=== PATIENT | male | born 1995 | race Caucasian/White ===

== ENCOUNTER 2016-08-10 10:07 | Inpatient (IN) | payer BC ==
[~2016-08-10] VITALS: Ht 170.2 cm; Wt 85.0 kg
[2016-08-10] VITALS (7 sets, daily range): BP systolic 101–119; BP diastolic 45–82; PULSE 87–130; TEMP 36.9–37.3; O2SAT 93–99; Ht 170.2 cm; Wt 85.0 kg
[2016-08-10] MEDS ORDERED: LORAZEPAM 2 MG/ML 1 ML VIAL IV STA (10:36)
--- NOTE | 2016-08-10 10:39 | EMERGENCY ROOM VISIT NOTE ---
History Report prepared by Emily: Orlando Garza Under the Supervision of: Dr. Olivia Garvin D.O. First contact with patient: 10:16 Chief Complaint: OVERDOSE (INTENTIONAL) Stated Complaint: OVERDOSE History of Present Illness The patient is a 20 year old male who presents to the Emergency Room with an acute heroin overdose that occurred at an unknown time prior to arrival. Per EMS , the patient was found unresponsive on his back. He did have a pulse. He was given 0.4 mg Narcan by EMS en route to the ED which made him more alert and improve his breathing. Patient subsequently vomited. Nursing staff notes that the patient's oxygen was in the 50s on room air upon arrival. He was placed on nonrebreather oxygen and his saturation improved to 78. He notes that he is feeling shortness of breath. The patient states that he last remembers "talking on the phone." Per EMS, the patient was last known well at 0645 when he took his girlfriend to work. EMS was dispatched at 0945, and state police were on scene. The patient vomited and aspiration is a possibility. There was no paraphernalia on scene, and the patient told EMS that he snorted the heroin. Source of History: patient, EMS, nursing staff History Limited By: AMS Onset: unknown time prior to arrival, EMS dispatched 0945 Position: other (global) Quality: other (overdose) Timing: other (acute) Modifying Factors (Relieving): other (Narcan) Associated Symptoms: + SOB, + vomiting Review of Systems ROS is limited secondary to altered mental status. Past Medical & Surgical Medical Problems: (1) Drug abuse (2) Hypoxia (3) Overdose (4) Tobacco abuse Surgical Problems: (1) No significant past surgical history Family History No pertinent family history Social History Marital Status: in relationship Current/Historical Medications No Active Prescriptions or Reported Meds Allergies Coded Allergies: No Known Allergies (Unverified , NONE, 08/10/16) Physical Exam Vital Signs Date Time Temp Pulse Resp B/P Pulse Ox O2 Delivery O2 Flow Rate FiO2 08/10/16 12:12 99 08/10/16 11:45 109 18 120/67 99 BiPAP 08/10/16 10:35 135 22 111/72 96 Room Air 08/10/16 10:30 130 93 100 08/10/16 10:12 141 08/10/16 10:10 36.4 146 20 119/91 56 Room Air Physical Exam GENERAL: Awake, alert and talking, slightly mottled, diaphoretic and pale. EYE EXAM: normal conjunctiva, PERRL and EOM's grossly intact OROPHARYNX: no exudate, no erythema, lips, buccal mucosa, and tongue normal and mucous membranes are dry, no debris in the oropharynx. NECK: supple, no nuchal rigidity, no adenopathy, non-tender LUNGS: Decreased breath sounds bilaterally. Normal chest wall mechanics HEART: Tachycardic but regular, no murmurs, S1 normal and S2 normal ABDOMEN: abdomen soft, non-tender, normo-active bowel sounds, no masses, no rebound or guarding. BACK: Back is symmetrical on inspection and there is no deformity, no midline tenderness, no CVA tenderness. SKIN: no rashes and no bruising, mild mottling UPPER EXTREMITIES: upper extremities are grossly normal. LOWER EXTREMITIES: No pitting edema. NEURO EXAM: Normal sensorium, cranial nerves II-XII grossly intact, normal speech, no gross weakness of arms, no gross weakness of legs. Gross sensation intact. Medical Decision & Procedures ER Provider Diagnostic Interpretation: Xray results per the radiologist and my interpretation. CHEST ONE VIEW PORTABLE CLINICAL HISTORY: Shortness of breath. Hypoxia. COMPARISON STUDY: No previous studies for comparison. FINDINGS: There is no pneumothorax or pleural effusion. Extensive left lung airspace opacity is noted. There is moderate airspace opacity within the right upper lung. Cardiac size is normal. Mediastinal contours are normal. There may be mild interlobular septal thickening. IMPRESSION: Extensive bilateral airspace opacities with mild interstitial thickening, greater within the left lung. The findings favor multifocal pneumonia. Asymmetric pulmonary edema or pulmonary hemorrhage could appear similar although are considered less likely. Radiographic follow up is recommended. Electronically signed by: Chris Castano M.D. 08/10/2016 10:47 AM Dictated Date/Time: 08/10/2016 10:46 AM Laboratory Results 08/10/16 10:25 Test 08/10/16 10:25 08/10/16 11:10 Immature Granulocyte % (Auto) 0.4 % White Blood Count 25.03 K/uL (4.8-10.8) Red Blood Count 5.29 M/uL (4.7-6.1) Hemoglobin 16.1 g/dL (14.0-18.0) Hematocrit 48.0 % (42-52) Mean Corpuscular Volume 90.7 fL (80-100) Mean Corpuscular Hemoglobin 30.4 pg (25-34) Mean Corpuscular Hemoglobin Concent 33.5 g/dl (32-36) Platelet Count 398 K/uL (130-400) Mean Platelet Volume 9.8 fL (7.4-10.4) Neutrophils (%) (Auto) 84.1 % Lymphocytes (%) (Auto) 11.2 % Monocytes (%) (Auto) 3.9 % Eosinophils (%) (Auto) 0.2 % Basophils (%) (Auto) 0.2 % Neutrophils # (Auto) 21.05 K/uL (1.4-6.5) Lymphocytes # (Auto) 2.81 K/uL (1.2-3.4) Monocytes # (Auto) 0.97 K/uL (0.11-0.59) Eosinophils # (Auto) 0.06 K/uL (0-0.5) Basophils # (Auto) 0.05 K/uL (0-0.2) Immature Granulocyte # (Auto) 0.09 K/uL (0.00-0.02) Prothrombin Time 10.7 SECONDS (9.0-12.0) Prothromb Time International Ratio 1.0 (0.9-1.1) Activated Partial Thromboplast Time 24.4 SECONDS (21.0-31.0) Partial Thromboplastin Ratio 0.9 Anion Gap 12.0 mmol/L (3-11) Est Creatinine Clear Calc Drug Dose 93.4 ml/min Estimated GFR () 89.8 Estimated GFR (Non- 77.5 BUN/Creatinine Ratio 9.3 (10-20) Calcium Level 8.3 mg/dl (8.5-10.1) Total Bilirubin 0.3 mg/dl (0.2-1) Aspartate Amino Transf (AST/SGOT) 24 U/L (15-37) Alanine Aminotransferase (ALT/SGPT) 36 U/L (12-78) Alkaline Phosphatase 107 U/L (45-117) Total Protein 7.5 gm/dl (6.4-8.2) Albumin 4.2 gm/dl (3.4-5.0) Globulin 3.3 gm/dl (2.5-4.0) Albumin/Globulin Ratio 1.3 (0.9-2) Beta-Hydroxybutyric Acid 1.35 mg/dL (0.2-2.81) Ethyl Alcohol mg/dL < 3.0 mg/dl (0-3) Arterial Blood pH 7.38 (7.35-7.45) Arterial Blood Partial Pressure CO2 40 mmHg (35-46) Arterial Blood Partial Pressure O2 109 mm/Hg (80-95) Arterial Blood HCO3 23 mmol/L (19-24) Arterial Blood Oxygen Saturation 98.1 % (90-95) Arterial Blood Base Excess -2.0 mEq/L (-9-1.8) Arterial Blood Gas Delivery 100% Anish Test POSITIVE (POS) Laboratory results per my review. Medications Administered Medications (Trade) Dose Ordered Sig/Mamie Route Start Time Stop Time Status Last Admin Dose Admin Lorazepam (Ativan Inj) 0.5 mg NOW STAT IV 08/10/16 10:36 08/10/16 10:37 DC 08/10/16 11:11 0.5 MG Piperacillin Sod/ Tazobactam Sod 3.375 gm 3.375 gm NOW STAT IV 08/10/16 10:56 08/10/16 10:57 DC 08/10/16 11:45 3.375 GM Sodium Chloride (Nss 1000ml) 1,000 ml @ 250 mls/hr Q4H STAT IV 08/10/16 11:54 08/10/16 14:06 DC 08/10/16 12:49 250 MLS/HR Insulin Human Regular (novoLIN-R U-100 PER UNIT) 2 units NOW STAT IV 08/10/16 11:54 08/10/16 11:56 DC 08/10/16 12:50 2 UNITS ECG Indication: toxicologic Rate (beats per minute): 136 Rhythm: sinus tachycardia Findings: no acute ischemic change, no ectopy, other (normal axis, normal intervals) ED Course 1017: The patient was evaluated in room B10. A complete history and physical exam was performed. 1022: The patient was started on BiPAP. 1032: Reassessed the patient. He is looking a lot better. Sats are up and his heart rate has decreased. 1036: Ativan 0.5 mg IV. 1039: The patient is still looking better. 1050: The patient is doing okay. 1056: Zosyn 3.375 gm IV. 1130: The patient looks much better. 1154: Insulin Human Regular 2 units IV, NSS 1000 ml @ 250 mls/hr. 1218: Discussed the case with Ciara Enriquez PA-C, [facility]. The patient will be evaluated. Medical Decision Differential diagnosis includes overdose, aspiration, cardiogenic pulmonary edema, ACS, PE, pneumonia. Patient initially hypoxic despite supplemental oxygen required additional airway and ventilatory support. Patient improved on BiPAP, hypoxia resolved and tachycardia improved. Blood pressure stable throughout. Patient's exam and chest x-ray initially thought to be mild pulmonary edema, however read as possible bilateral infiltrates also. Given hypoventilation, hypoxia, and recent vomiting, concern for aspiration patient covered with antibiotics. No other acute electrolyte/renal abnormalities noted. Patient remained stable here and well-appearing on BiPAP. Patient needed for continuing monitoring, and respiratory support. Blood culture sent and as a precaution. Leukocytosis likely secondary to stress reaction as well as aspiration pneumonia. Consults Time Called: 1210 Consulting Physician: Ciara Enriquez PA-C, [facility] Returned Call: 1218 The patient will be evaluated. Impression Primary Impression: Overdose Additional Impressions: Hypoxia Drug abuse Aspiration pneumonia Critical Care I have personally spent 45 minutes of critical care time in the direct management of this patient. This includes bedside care, interpretation of diagnostic studies, and testing, discussion with consultants, patient, and family members, and other required patient management activities. This 45 minutes is in excess of all separately billable procedures. Scribe Attestation The scribe's documentation has been prepared under my direction and personally reviewed by me in its entirety. I confirm that the note above accurately reflects all work, treatment, procedures, and medical decision making performed by me. Departure Information Dispostion Being Evaluated By Hospitalist Prescriptions No Active Prescriptions or Reported Meds Referrals No Doctor, Assigned (PCP) Patient Instructions My [facility] Problem Qualifiers Primary Impression: Overdose Encounter type: initial encounter Injury intent: accidental or unintentional Qualified Codes: T50.901A - Poisoning by unspecified drugs, medicaments and biological substances, accidental (unintentional), initial encounter Additional Impressions: Aspiration pneumonia Aspiration pneumonia type: due to vomit Laterality: bilateral Lung location : unspecified part of lung Qualified Codes: J69.0 - Pneumonitis due to inhalation of food and vomit
--- NOTE | 2016-08-10 10:49 | DIAGNOSTIC IMAGING REPORT ---
CHEST ONE VIEW PORTABLE CLINICAL HISTORY: Shortness of breath. Hypoxia. COMPARISON STUDY: No previous studies for comparison. FINDINGS: There is no pneumothorax or pleural effusion. Extensive left lung airspace opacity is noted. There is moderate airspace opacity within the right upper lung. Cardiac size is normal. Mediastinal contours are normal. There may be mild interlobular septal thickening. IMPRESSION: Extensive bilateral airspace opacities with mild interstitial thickening, greater within the left lung. The findings favor multifocal pneumonia. Asymmetric pulmonary edema or pulmonary hemorrhage could appear similar although are considered less likely. Radiographic follow up is recommended. Electronically signed by: Chris Castano M.D. 08/10/2016 10:47 AM Dictated Date/Time: 08/10/2016 10:46 AM
[2016-08-10 10:56] LABS: MEAN CELL VOLUME 90.7 fL (80-100); MEAN CORPUSCULAR HEMOGLOBIN 30.4 pg (25-34); MEAN CORPUSCULAR HGB CONC 33.5 g/dl (32-36); MEAN PLATELET VOLUME 9.8 fL (7.4-10.4); PLATELET COUNT 398 K/uL (130-400); RED BLOOD COUNT 5.29 M/uL (4.7-6.1); WHITE BLOOD COUNT 25.03 K/uL (4.8-10.8)
[2016-08-10] MEDS ORDERED: PIPERACILLIN/TAZOBACTAM 3.375 GM/100ML D5W IV STA (10:56)
[2016-08-10 11:15] LABS: BASO % 0.2 %; BASO ABS # 0.05 K/uL (0-0.2); COMPLETE YES; EOS % 0.2 %; IG% 0.4 %; LYMPH % 11.2 %; LYMPH ABS # 2.81 K/uL (1.2-3.4); MONO % 3.9 %; NEUT % 84.1 %
[2016-08-10 11:25] LABS: ARTERIAL BLD GAS O2 SATURATION 98.1 % (90-95); ARTERIAL BLOOD GAS HCO3 23 mmol/L (19-24); ARTERIAL BLOOD GAS PO2 109 mm/Hg (80-95); ARTERIAL BLOOD GAS pH 7.38 (7.35-7.45)
[2016-08-10 11:26] LABS: ALLEN TEST POSITIVE (POS); O2 ADMINISTRATION 100%
[2016-08-10 11:26] LABS: ALB/GLOB RATIO 1.3 (0.9-2); BUN/CREATININE RATIO 9.3 (10-20); CALCIUM 8.3 mg/dl (8.5-10.1); CREATININE 1.3 mg/dl (0.60-1.40); POTASSIUM 3.7 mmol/L (3.5-5.1)
[2016-08-10 11:46] LABS: BETA-HYDROXYBUTYRATE 1.35 mg/dL (0.2-2.81)
[2016-08-10] MEDS ORDERED: NovoLIN-R INSULIN PER UNIT CHARGE IV STA (11:54)
[2016-08-10] MEDS ORDERED: SODIUM CHLORIDE 0.9% 1000ML 1,000 ML IV STA (11:54)
[2016-08-10] MEDS ORDERED: ONDANSETRON INJ 2 MG/ML 2 ML VIAL IV PRN (13:00)
[2016-08-10] MEDS ORDERED: NALOXONE HCL 0.4 MG/1 ML VIAL/CARP IV PRN (13:15)
[2016-08-10] MEDS ORDERED: NALOXONE HCL IV ONE ×2 (13:15→16:45)
[2016-08-10] MEDS ORDERED: PIPERACILL/TAZOBAC CONSULT ACTIVE PRN (13:30)
[2016-08-10 13:45] LABS: PARTIAL THROMBOPLASTIN RATIO 0.9; PROTHROMBIN TIME (PATIENT) 10.7 SECONDS (9.0-12.0)
[2016-08-10] MEDS ORDERED: AMPICILLIN/SULBACTAM CONSULT ACTIVE PRN ×2 (14:00)
[2016-08-10] MEDS: SODIUM CHLORIDE 0.9% 1000ML 1,000 ML IV SCH (14:31)
--- NOTE | 2016-08-10 15:13 | History and Physical ---
History & Physical Date of Service August 10, 2016. History & Physical This is a 20 year old male who presented to the ER due to heroin overdose; as per his significant other, he snorted heroin and may have taken some Percocet pills as well. She states that he used to inject heroin in the past, but was arrested and just came out of the [place] [facility] and started snorting heroin again. He became unresponsive, decreased breathing - frothy sputum. EMS was called and they gave him 0.4mg Naloxone, he woke up, but vomited and likely aspirated as per EMS. He was brought to the ER and placed on bipap due to hypoxia. CXR done favoring multifocal pneumonia. ABGs with no significant findings. When I saw him in the ER, he was awake, though lethargic, he had bipap mask on, but he was telling me he felt very dry. He stated that he felt his breathing was fine, no chest pain; mildly nauseous, and he had the one episode of vomiting en route to the EMS. He states that he wants to go to rehab straight from the hospital. VITALS: Last Vital Signs Documentation Date Time Temp Pulse Resp B/P Pulse Ox O2 Delivery O2 Flow Rate FiO2 08/10/16 13:38 104 20 106/83 100 08/10/16 13:01 100 08/10/16 10:10 36.4 GEN: +lethargic, somnolent HEENT: pupils constricted CVS: +tachycardia, S1, S2 LUNGS: +rales diffusely ABD: soft, NT/ND EXT: no edema Opioid Overdose patient snorted heroin, became unresponsive with respiratory depression given one dose of 0.4mg Narcan he aspirated his vomitus currently on Bipap mask, saturating okay will give 0.05mg Narcan x1, repeated doses until ventilation improves Narcan 0.4mg PRN for apnea wean O2 as tolerated discharge planning eval - 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
--- NOTE | 2016-08-10 16:00 | History and Physical ---
History & Physical Date & Time of Service: August 10, 2016 at 13:11 Chief Complaint: Overdose Primary Care Physician: No Doctor, Assigned History of Present Illness Source: patient, partner This is a 20 year old male with multiple drug abuse, chronic smoker, who presents to the ED after being found unresponsive. Patient's significant other at bedside states patient was released from [facility] 2 days ago and began using heroin again yesterday. Pt reports snorting heroin last night and "a small amount" this morning as well as taking half a Percocet. Denies alcohol intake. This morning patient was found to be unresponsive with epistaxis and foaming at the mouth in his home by a friend this morning who called 911. Per report when EMS arrived patient was unresponsive with pulse with slow respiratory rate and hypoxia. Patient awoke with Narcan 0.4 mg by EMS. He reportedly vomited and there was concern for aspiration. When patient arrived to ER he was hypoxic to 50s on RA and 70s on nonrebreather. He was noted to have increased work of breathing. He was placed on BiPAP with improvement of sats to 100s. Pt received Ativan 0.5 mg in ER. Pt reports feeling tired with dry mouth but otherwise comfortable now on BiPAP. He denies feeling SOB currently. No recent illness, fever, chills, URI symptoms, cough, chest pain, abdominal pain, N/V prior to today, change in bowel movements, calf pain, edema, suicidal ideations. Pt was hyperglycemic in 300s in ER and received 2 units of IV insulin. No personal history of DM or other medical problems. He does admit to polyuria and polydipsia. Pt reports prior IVDA in remote past. No needle sharing. Patient has not been tested for HIV in the past and wishes to have testing done. Past Medical/Surgical History Medical Problems: (1) Drug abuse Status: Chronic (2) Tobacco abuse Status: Chronic Surgical Problems: (1) No significant past surgical history Status: Chronic Family History Diabetes mellitus FATHER MOTHER Social History Smoking Status: Current Every Day Smoker (1/2 ppd) Alcohol Use: none Drug Use: heroin (snorting recently. remote IVDA), other (meth prior to recent incarceration) Marital Status: in relationship Housing status: lives with significant other Multi-Drug Resistant Organisms History of MDRO: No Allergies Coded Allergies: No Known Allergies (Unverified , NONE, 08/10/16) Home Medications No Active Prescriptions or Reported Meds Review of Systems Ten systems reviewed and negative except as noted in HPI. Physical Exam Vital Signs Date Time Temp Pulse Resp B/P Pulse Ox O2 Delivery O2 Flow Rate FiO2 08/10/16 12:12 99 08/10/16 11:45 109 18 120/67 99 BiPAP 08/10/16 10:35 135 22 111/72 96 Room Air 08/10/16 10:30 130 93 100 08/10/16 10:12 141 08/10/16 10:10 36.4 146 20 119/91 56 Room Air General Appearance: WD/WN, + pertinent finding (somnolent but awakens and answers questions appropriately, appears calm and comfortable on BiPAP) Head: normocephalic, atraumatic Eyes: normal inspection, PERRL, sclerae normal ENT: hearing grossly normal, + pertinent finding (on BiPAP) Neck: supple, trachea midline Respiratory/Chest: no respiratory distress, no accessory muscle use, + pertinent finding (scattered rhonchi. saturating well on BiPAP) Cardiovascular: no murmur, normal peripheral pulses, + bradycardia (regular rhythm) Abdomen/GI: normal bowel sounds, non tender, soft Extremities/Musculoskelatal: no calf tenderness, normal capillary refill, no pedal edema Neurologic/Psych: alert, normal mood/affect, oriented x 3, + pertinent finding (no focal deficit on gross examination) Skin: normal color, warm/dry Diagnostics Laboratory Results Results Past 24 Hours Test 08/10/16 10:25 08/10/16 10:36 08/10/16 11:10 08/10/16 13:06 Range/Units White Blood Count 25.03 4.8-10.8 K/uL Red Blood Count 5.29 4.7-6.1 M/uL Hemoglobin 16.1 14.0-18.0 g/dL Hematocrit 48.0 42-52 % Mean Corpuscular Volume 90.7 80-100 fL Mean Corpuscular Hemoglobin 30.4 25-34 pg Mean Corpuscular Hemoglobin Concent 33.5 32-36 g/dl Platelet Count 398 130-400 K/uL Mean Platelet Volume 9.8 7.4-10.4 fL Neutrophils (%) (Auto) 84.1 % Lymphocytes (%) (Auto) 11.2 % Monocytes (%) (Auto) 3.9 % Eosinophils (%) (Auto) 0.2 % Basophils (%) (Auto) 0.2 % Neutrophils # (Auto) 21.05 1.4-6.5 K/uL Lymphocytes # (Auto) 2.81 1.2-3.4 K/uL Monocytes # (Auto) 0.97 0.11-0.59 K/uL Eosinophils # (Auto) 0.06 0-0.5 K/uL Basophils # (Auto) 0.05 0-0.2 K/uL RDW Standard Deviation 46.3 36.4-46.3 fL RDW Coefficient of Variation 14.0 11.5-14.5 % Immature Granulocyte % (Auto) 0.4 % Immature Granulocyte # (Auto) 0.09 0.00-0.02 K/uL Sodium Level 139 136-145 mmol/L Potassium Level 3.7 3.5-5.1 mmol/L Chloride Level 101 98-107 mmol/L Carbon Dioxide Level 26 21-32 mmol/L Anion Gap 12.0 3-11 mmol/L Blood Urea Nitrogen 12 7-18 mg/dl Creatinine 1.30 0.60-1.40 mg/dl Est Creatinine Clear Calc Drug Dose 93.4 ml/min Estimated GFR () 89.8 Estimated GFR (Non- 77.5 BUN/Creatinine Ratio 9.3 10-20 Random Glucose 361 70-99 mg/dl Calcium Level 8.3 8.5-10.1 mg/dl Total Bilirubin 0.3 0.2-1 mg/dl Aspartate Amino Transf (AST/SGOT) 24 15-37 U/L Alanine Aminotransferase (ALT/SGPT) 36 12-78 U/L Alkaline Phosphatase 107 45-117 U/L Total Protein 7.5 6.4-8.2 gm/dl Albumin 4.2 3.4-5.0 gm/dl Globulin 3.3 2.5-4.0 gm/dl Albumin/Globulin Ratio 1.3 0.9-2 Beta-Hydroxybutyric Acid 1.35 0.2-2.81 mg/dL Ethyl Alcohol mg/dL < 3.0 0-3 mg/dl Arterial Blood pH 7.38 7.35-7.45 Arterial Blood Partial Pressure CO2 40 35-46 mmHg Arterial Blood Partial Pressure O2 109 80-95 mm/Hg Arterial Blood HCO3 23 19-24 mmol/L Arterial Blood Oxygen Saturation 98.1 90-95 % Arterial Blood Base Excess -2.0 -9-1.8 mEq/L Arterial Blood Gas Delivery 100% Anish Test POSITIVE POS Test 08/10/16 13:07 Range/Units Microbiology Results 08/10/16 Blood Culture, Received Pending 08/10/16 Blood Culture, Received Pending Diagnostic Radiology CHEST ONE VIEW PORTABLE CLINICAL HISTORY: Shortness of breath. Hypoxia. COMPARISON STUDY: No previous studies for comparison. FINDINGS: There is no pneumothorax or pleural effusion. Extensive left lung airspace opacity is noted. There is moderate airspace opacity within the right upper lung. Cardiac size is normal. Mediastinal contours are normal. There may be mild interlobular septal thickening. IMPRESSION: Extensive bilateral airspace opacities with mild interstitial thickening, greater within the left lung. The findings favor multifocal pneumonia. Asymmetric pulmonary edema or pulmonary hemorrhage could appear similar although are considered less likely. Radiographic follow up is recommended. 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 to 50s on RA and 70s on nonrebreather, now saturating well on BiPAP Give Narcan 0.05 mg x 1 and repeat until ventilation improves Wean oxygen as tolerated Narcan 0.4 mg PRN apnea Urine tox screen pending Remote hx IV drug use; pt requests HIV testing Consult psych social worker for discharge planning/ rehab arrangement ASPIRATION PNEUMONIA Reportedly vomited prior to arrival with concern for aspiration CXR- multifocal pneumonia Afebrile, + leukocytosis (WBC 25k), + tachycardia, no hypotension, lactic acid WNL Given dose of IV Zosyn in ER Will change antibiotics to IV Unasyn F/u blood cultures Received 1 liter of IVF's in ER - will continue IVFs at 100 mL/hour Repeat CXR in am HYPERGLYCEMIA Likely due to opioid overdose Random glucose 361 in ER Received regular insulin 2 units IV in ER Monitor BSG q4 hours DVT PROPHYLAXIS Lovenox SQ FULL CODE DISPOSITION Admit to telemetry pharmacy services director consulted for arrangement of rehab Patient seen in collaboration with Dr. Willson. Please see his addendum. VTE Prophylaxis VTE Risk Assessment Done? Y/N: Yes Risk Level: Moderate
[2016-08-10] MEDS ORDERED: NALOXONE HCL 0.4 MG/1 ML VIAL/CARP IV STA (16:33)
[2016-08-10] MEDS: AMPICILLIN/SULBACTAM SOD INJ 3,000 MG in SODIUM CHLORIDE 0.9% 100ML 100 ML IV SCH (17:08)
[2016-08-10] MEDS: ENOXAPARIN 40 MG/0.4 ML SYR SC SCH (19:51)
[2016-08-10 20:29] LABS: BENZODIAZEPINE, URINE NEG (NEG); COCAINE,URINE NEG (NEG); PHENCYCLIDINE, URINE NEG (NEG)
[2016-08-11] VITALS (9 sets, daily range): BP systolic 101–123; BP diastolic 50–85; PULSE 73–89; TEMP 36.4–37.1; O2SAT 50–99
[2016-08-11] MEDS: SODIUM CHLORIDE 0.9% 1000ML 1,000 ML IV SCH ×2 (00:06→14:05)
[2016-08-11] MEDS: AMPICILLIN/SULBACTAM SOD INJ 3,000 MG in SODIUM CHLORIDE 0.9% 100ML 100 ML IV SCH ×4 (00:06→16:57)
[2016-08-11] MEDS: ACETAMINOPHEN 325 MG TAB PO PRN ×2 (04:24→09:47)
[2016-08-11 08:16] LABS: HEMATOCRIT 35.9 % (42-52); MEAN CELL VOLUME 89.3 fL (80-100); MEAN CORPUSCULAR HEMOGLOBIN 30.1 pg (25-34); MEAN CORPUSCULAR HGB CONC 33.7 g/dl (32-36); MEAN PLATELET VOLUME 9.6 fL (7.4-10.4); PLATELET COUNT 239 K/uL (130-400); RED BLOOD COUNT 4.02 M/uL (4.7-6.1); WHITE BLOOD COUNT 11.65 K/uL (4.8-10.8)
--- NOTE | 2016-08-11 09:44 | DIAGNOSTIC IMAGING REPORT ---
CHEST 2 VIEWS ROUTINE CLINICAL HISTORY: possible aspiration pneumonia pneumonitis COMPARISON STUDY: 08/10/2016 FINDINGS: Diffuse left and to lesser extent right upper lobe hemithoracic infiltrative change. These findings are radiographically similar compared to the prior study. Diaphragms are smooth. There is no significant pleural effusion. IMPRESSION: Diffuse left hemithoracic and right upper lobe parenchymal infiltrative change. No change from the prior study. Electronically signed by: Karthik Brooks M.D. 08/11/2016 9:42 AM Dictated Date/Time: 08/11/2016 9:41 AM
--- NOTE | 2016-08-11 10:58 | Progress Note ---
Internal Med Progress Note Date of Service: August 11, 2016. Provider Documentation: SUBJECTIVE: The patient was seen and examined Presented with Heroin overdose,almost needed to be intubated Clinically much better this morning Complains of minimal SOB at rest OBJECTIVE: Vital Signs-as noted below Exam: General-No distress at rest Eyes-Normal ENT-normal Neck-Supple Lungs-Decreased breath sound bilaterally Minimal crackles at the left base and right upper lung Heart-Regular,no murmur appreciated Abdomen-Benign,no masses,bowel sound present Extremities-No edema Neuro-AAOx3 Lab data as noted below. ASSESSMENT & PLAN: Heroin Overdose with H/O Heroin abuse Presented with unresponsiveness, respiratory depression after snorting heroin and taking half a Percocet Was hypoxic to 50s on RA and 70s on nonrebreather Required 2 doses of Narcan and BIPAP Tolerated NC and doing fine this morning Urine tox screen -negative Remote hx IV drug use; pt requests HIV testing Psychiatry consulted Consult aids social worker for discharge planning/ rehab arrangement ASPIRATION PNEUMONIA Reportedly vomited prior to arrival with concern for aspiration CXR- multifocal pneumonia Afebrile, + leukocytosis (WBC 25k), + tachycardia, no hypotension, lactic acid WNL Received 1 dose of Zosyn in ER Now on Unasyn CXR-no improvement HYPERGLYCEMIA Likely due to opioid overdose Random glucose 361 in ER Received regular insulin 2 units IV in ER Monitor BSG q4 hours DVT PROPHYLAXIS Lovenox SQ FULL CODE DISPOSITION Awaited Discussed with the Girlfriend and the patient Vital Signs: Date Time Temp Pulse Resp B/P Pulse Ox O2 Delivery O2 Flow Rate FiO2 08/11/16 08:28 36.4 84 18 113/62 93 Nasal Cannula 5.0 08/11/16 08:00 94 5.0 08/11/16 04:00 97 15.0 50 08/11/16 04:00 36.8 81 20 101/50 97 Venturi Mask 15.0 08/11/16 00:00 37.1 82 29 123/51 97 Venturi Mask 50 08/11/16 00:00 97 15.0 50 08/10/16 20:00 99 Venturi Mask 15.0 50 08/10/16 19:42 37.0 90 18 105/45 98 15.0 08/10/16 16:00 98 Venturi Mask 15.0 50 08/10/16 15:32 37.3 87 26 101/56 98 15.0 08/10/16 13:55 36.9 99 24 119/82 98 Venturi Mask 15.0 50 08/10/16 13:38 104 20 106/83 100 08/10/16 13:01 99 BiPAP 100 08/10/16 12:12 99 08/10/16 11:45 109 18 120/67 99 BiPAP Lab Results: Results Past 24 Hours Test 08/10/16 11:10 08/10/16 13:24 08/10/16 14:33 08/10/16 19:55 Range/Units Arterial Blood pH 7.38 7.35-7.45 Arterial Blood Partial Pressure CO2 40 35-46 mmHg Arterial Blood Partial Pressure O2 109 80-95 mm/Hg Arterial Blood HCO3 23 19-24 mmol/L Arterial Blood Oxygen Saturation 98.1 90-95 % Arterial Blood Base Excess -2.0 -9-1.8 mEq/L Arterial Blood Gas Delivery 100% Anish Test POSITIVE POS Bedside Glucose 81 70-99 mg/dl Lactic Acid Level 1.0 0.4-2.0 mmol/L HIV (1&2) Ab and P24 Ag, 4th Gener NEG NEG Urine Opiates Screen NEG NEG Urine Methadone, Qualitative NEG NEG Urine Barbiturates NEG NEG Urine Phencyclidine (PCP) Level NEG NEG Ur Amphetamine/Methamphetamine NEG NEG MDMA (Ecstasy) Screen NEG NEG Urine Benzodiazepines Screen NEG NEG Urine Cocaine Metabolite NEG NEG Urine Marijuana (THC) NEG NEG Test 08/11/16 00:45 08/11/16 04:31 08/11/16 06:33 Range/Units Bedside Glucose 113 105 70-99 mg/dl White Blood Count 11.65 4.8-10.8 K/uL Red Blood Count 4.02 4.7-6.1 M/uL Hemoglobin 12.1 14.0-18.0 g/dL Hematocrit 35.9 42-52 % Mean Corpuscular Volume 89.3 80-100 fL Mean Corpuscular Hemoglobin 30.1 25-34 pg Mean Corpuscular Hemoglobin Concent 33.7 32-36 g/dl RDW Standard Deviation 47.2 36.4-46.3 fL RDW Coefficient of Variation 14.3 11.5-14.5 % Platelet Count 239 130-400 K/uL Mean Platelet Volume 9.6 7.4-10.4 fL
--- NOTE | 2016-08-11 16:35 | Psych Management Progress Note ---
Psychiatry Miscellaneous Date of Service: August 11, 2016. I personally participated in the case review and medical recommendations outlined in the psychiatric consultation documented by MARYURI Tovar. No indication for psychiatric admission. No participation in outpatient substance abuse treatment at this time, probation may mandate rehab.
--- NOTE | 2016-08-11 17:04 | CONSULTATION REPORT ---
DATE OF CONSULTATION: 08/11/2016 DATE OF CONSULTATION: 08/11/2016. IDENTIFYING DATA: Mundo Reyes is a 20-year-old gentleman from [place], [place], admitted to the medical floor after having been found down after snorting a line of heroin. This consult is requested to evaluate overdose, depression and anxiety. Information is gathered from the patient and the electronic medical record and considered to be reliable. CHIEF COMPLAINT: "I overdosed on heroin." HISTORY OF PRESENT ILLNESS: Mundo Reyes is a 20-year-old gentleman with no known mental health history, who admits that he just got out of assisted several days ago. The original charges dates back to when he was 16, and got caught with marijuana and paraphernalia. Apparently he did not pay his fines nor did he attend his appointments with his PO and so was sent to assisted recently. He got out of assisted 2 days ago. He works for a [employer] and one of his co-workers gave him a small bag of heroin and he decided to use it on the day of admission. He insists he did 1 small line, remembers opening a monster drink and that is all he remembers. He then remembers being woken up and someone asking him if there was any more heroin in the house. He says that his security patrol officer is aware of this infraction and has said that he will not immediately sent him back to assisted, but says that he needs to be at an appointment with him on Saturday morning at 8:30. In terms of mental illness, the patient denies feeling depressed. He says that his girlfriend thinks he is depressed because he does not talk much. He says his sleep is generally good except for when he was in assisted for 18 days, and then he said it was poor. His appetite was also poor while in assisted saying that he is a picky eater and lost 20 pounds. He says he is anxious sometimes and says that he thinks he was anxious and worried when he was in high school, but not prior to that. He gets episodes of heightened anxiety during which she has shortness of breath and racing heart. He denies auditory or visual hallucinations. He denies self-injurious thoughts or behaviors. He denies suicidal ideation. CURRENT MEDICATIONS: None. PAST PSYCHIATRIC HISTORY: The patient denies ever having been seen by a mental health professional. He has never been hospitalized for mental illness. He has never made a suicide attempt. He denies any evidence of violence to self or others. PRIOR MEDICATION TRIALS: None. ACCESS TO GUNS: None in his home; however friends have guns. ALLERGIES: NKDA. PAST MEDICAL HISTORY: 1. Denies for personal history of obesity, dyslipidemia, diabetes, hypertension, or cardiovascular disease. 2. No history for head injury or seizure. 3. Tobacco use -- currently smoking less than 1 pack of cigarettes per day and chewing half can of tobacco daily. FAMILY HISTORY: Father who is schizophrenic. No family history for substance use problems or suicide. SUBSTANCE USE HISTORY: The patient says he uses alcohol "rarely". His drug of choice is marijuana and these are the charges against him including possession and paraphernalia. He says that he sometimes does opiates, either by pills or snorting heroin, but says he never does anything regularly. He does not feel as if he has ever gone through withdrawal nor does he have cravings. PERSONAL HISTORY: The patient was born here locally, moved to [place] at the age of 6 and returned to the [employer] in 8th grade. He was raised by both his mother and father. He attended school until the end of his 12th grade year when he was kicked out of school for not completing his senior project and has not gone on to complete his GED. 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 He has a girlfriend that he has been with for 7 years and they have a 9-month-old daughter together. He lives with his girlfriend and their child. Psychological trauma history is denied. MENTAL STATUS EXAMINATION: Young appearing gentleman with short dark hair, dressed in hospital gown, lying in a second floor bed. He is alert and cooperative with the interview. He makes good eye contact. Motor behavior is unremarkable, no abnormal muscle movements. Speech is of normal rate, volume, and tone. Affect is anxious. Mood is anxious. Thought process is organized and goal directed. He denies thought disorder in the form of hallucinations or delusions. He denies thoughts, plans, or intent to harm himself or anybody else. Today, he is fully oriented. Memory functions are impaired for events immediately after snorting heroin. Intelligence is estimated to be average. Insight and judgment are limited. VITAL SIGNS: Temp 36.7, pulse 77, respirations 26, blood pressure 122/85, pulse ox 99% on 5 liters. LABORATORY DATA: 1. CBC -- notable for WBCs trending down to 11.65, RBCs 4.02, hemoglobin 12.1, hematocrit 35.9. 2. Chem profile -- notable for random glucose 361, trending down to 104 and as low as 81, calcium low at 8.3, BUN-creatinine ratio 9.3. 3. Toxicology -- negative even for opiates. 4. HIV 1 and 2 negative. 5. Coag studies -- within normal limits. IMAGING: Most recent chest x-ray -- diffuse left hemithoracic and right upper lobe parenchymal infiltrative change. No change from previous study. REVIEW OF SYSTEMS: Positive for complaints of shortness of breath, chest tightness, anxiety. IMPRESSION: A 20-year-old gentleman who readily admits he snorted a line of heroin and was then found obtunded. He adamantly denies he did any other substances, although his drug screen is negative for opiates. He has never been in any kind of substance use treatment and although one would want to send him to rehab, he would likely be refused admission on a voluntary basis because he has never failed outpatient treatment. Therefore, I recommend we would make a referral to outpatient substance use treatment, perhaps through [facility] or another organization locally. I would recommend that we remain in contact with his PO, have him sign a release of information so he can be aware of these recommendations as well. There is a chance that he will be mandated to inpatient rehab after this incident, but that will be up to the legal system. He denies any depression and lacks sufficient symptoms to meet criteria for depression and so I have no recommendations. He meets no criteria for inpatient mental health treatment. He is okay for discharge from a psychiatric point of view. I will talk with social service to have them facilitate an outpatient substance use appointment. DIAGNOSES: 1. Opiate abuse. 2. Cannabis abuse. PLAN: Has been reviewed with Dr. Mandie Joshua. Substance abuse -- recommend outpatient treatment. We will ask social service to facilitate an outpatient appointment. He is to have an appointment with his chief revenue officer Saturday at 8:30 if he is out of the hospital. We thank you for allowing us to participate in this man's care.
[2016-08-11] MEDS: ENOXAPARIN 40 MG/0.4 ML SYR SC SCH (20:22)
[2016-08-12 00:02] VITALS: BP 115/55; PULSE 83; TEMP 37.4; O2SAT 94
[2016-08-12] MEDS: AMPICILLIN/SULBACTAM SOD INJ 3,000 MG in SODIUM CHLORIDE 0.9% 100ML 100 ML IV SCH ×3 (00:30→11:25)
[2016-08-12] MEDS: ACETAMINOPHEN 325 MG TAB PO PRN (03:43)
[2016-08-12 04:00] VITALS: BP 117/77; PULSE 63; TEMP 36.8; O2SAT 94
[2016-08-12] MEDS: SODIUM CHLORIDE 0.9% 1000ML 1,000 ML IV SCH (05:32)
[2016-08-12 08:00] VITALS: O2SAT 94
[2016-08-12 08:27] VITALS: BP 129/56; PULSE 87; TEMP 36.8; O2SAT 96
[2016-08-12 09:35] LABS: HEMATOCRIT 38.1 % (42-52); MEAN CELL VOLUME 89.2 fL (80-100); MEAN CORPUSCULAR HEMOGLOBIN 30.4 pg (25-34); MEAN CORPUSCULAR HGB CONC 34.1 g/dl (32-36); MEAN PLATELET VOLUME 9.1 fL (7.4-10.4); PLATELET COUNT 232 K/uL (130-400); RED BLOOD COUNT 4.27 M/uL (4.7-6.1); WHITE BLOOD COUNT 8.08 K/uL (4.8-10.8)
[2016-08-12 10:16] LABS: BLOOD UREA NITROGEN 7 mg/dl (7-18); BUN/CREATININE RATIO 10.6 (10-20); CALCIUM 8.8 mg/dl (8.5-10.1); CARBON DIOXIDE 25 mmol/L (21-32); CHLORIDE 111 mmol/L (98-107); CREATININE 0.64 mg/dl (0.60-1.40); GLUCOSE 97 mg/dl (70-99); POTASSIUM 3.5 mmol/L (3.5-5.1); SODIUM 144 mmol/L (136-145)
--- NOTE | 2016-08-12 11:38 | Progress Note ---
Internal Med Progress Note Date of Service: August 12, 2016. Provider Documentation: SUBJECTIVE: The patient was seen and examined Presented with Heroin overdose,almost needed to be intubated Clinically much better Denies any symptoms Ambulating well without any difficulty OBJECTIVE: Vital Signs-as noted below Exam: General-No distress at rest Eyes-Normal ENT-normal Neck-Supple Lungs-Decreased breath sound bilaterally Minimal crackles at the left base and right upper lung Heart-Regular,no murmur appreciated Abdomen-Benign,no masses,bowel sound present Extremities-No edema Neuro-AAOx3 Lab data as noted below. ASSESSMENT & PLAN: Heroin Overdose with H/O Heroin abuse Presented with unresponsiveness, respiratory depression after snorting heroin and taking half a Percocet Was hypoxic to 50s on RA and 70s on nonrebreather Required 2 doses of Narcan and BIPAP Tolerated NC and doing fine this morning Urine tox screen -negative Remote hx IV drug use; pt requests HIV testing Psychiatry consulted-appreciate input Consult social work specialist for discharge planning/ rehab arrangement Lists of Outpatient resources given ASPIRATION PNEUMONIA Reportedly vomited prior to arrival with concern for aspiration CXR- multifocal pneumonia Afebrile, + leukocytosis (WBC 25k), + tachycardia, no hypotension, lactic acid WNL Received 1 dose of Zosyn in ER Now on Unasyn CXR-no improvement Will start Augmentin HYPERGLYCEMIA Likely due to opioid overdose Random glucose 361 in ER Received regular insulin 2 units IV in ER Monitor BSG q4 hours Normalized DVT PROPHYLAXIS Lovenox SQ FULL CODE DISPOSITION Awaited Discussed with the Girlfriend and the patient Discharge home today Vital Signs: Date Time Temp Pulse Resp B/P Pulse Ox O2 Delivery O2 Flow Rate FiO2 08/12/16 08:27 36.8 87 16 129/56 96 Room Air 08/12/16 08:00 94 Room Air 08/12/16 04:00 Room Air 08/12/16 04:00 36.8 63 15 117/77 94 08/12/16 00:02 37.4 83 18 115/55 94 Room Air 08/11/16 23:59 Room Air 08/11/16 20:00 Room Air 08/11/16 19:37 37.0 73 26 120/63 99 Nasal Cannula 5.0 08/11/16 16:00 36.7 77 26 122/85 99 Nasal Cannula 5.0 08/11/16 15:07 96 3.0 08/11/16 12:22 36.6 89 20 114/61 99 Room Air 08/11/16 11:49 95 5.0 Lab Results: Results Past 24 Hours Test 08/11/16 11:38 08/11/16 16:21 08/11/16 20:12 08/12/16 06:38 Range/Units Bedside Glucose 104 93 106 93 70-99 mg/dl Test 08/12/16 09:20 Range/Units White Blood Count 8.08 4.8-10.8 K/uL Red Blood Count 4.27 4.7-6.1 M/uL Hemoglobin 13.0 14.0-18.0 g/dL Hematocrit 38.1 42-52 % Mean Corpuscular Volume 89.2 80-100 fL Mean Corpuscular Hemoglobin 30.4 25-34 pg Mean Corpuscular Hemoglobin Concent 34.1 32-36 g/dl RDW Standard Deviation 46.4 36.4-46.3 fL RDW Coefficient of Variation 14.1 11.5-14.5 % Platelet Count 232 130-400 K/uL Mean Platelet Volume 9.1 7.4-10.4 fL Sodium Level 144 136-145 mmol/L Potassium Level 3.5 3.5-5.1 mmol/L Chloride Level 111 98-107 mmol/L Carbon Dioxide Level 25 21-32 mmol/L Anion Gap 8.0 3-11 mmol/L Blood Urea Nitrogen 7 7-18 mg/dl Creatinine 0.64 0.60-1.40 mg/dl Est Creatinine Clear Calc Drug Dose 188.7 ml/min Estimated GFR () > 150.0 Estimated GFR (Non- 139.0 BUN/Creatinine Ratio 10.6 10-20 Random Glucose 97 70-99 mg/dl Calcium Level 8.8 8.5-10.1 mg/dl
[2016-08-12] MEDS ORDERED: AMOX1TAB43 PO (11:39)
[2016-08-12] MEDS ORDERED: LCTX PO (11:39)
--- NOTE | 2016-08-12 11:41 | Discharge Instructions ---
Discharge Instructions Date of Service August 12, 2016. Admission Reason for Admission: Overdose,Hypoxia Discharge Discharge Diagnosis / Problem: Heroin Overdose,Aspiration pneumonia Discharge Goals Goal(s): Prevent Disease Progression Activity Recommendations Activity Limitations: resume your previous activity . Instructions / Follow-Up Instructions / Follow-Up Dr Mckee on 08/16/16 at 10:05 AM. Current Hospital Diet Patient's current hospital diet: Regular Diet Discharge Diet Recommended Diet: Regular Diet Pending Studies Studies pending at discharge: no Medical Emergencies . Who to Call and When: Medical Emergencies: If at any time you feel your situation is an emergency, please call 911 immediately. . Non-Emergent Contact Non-Emergency issues call your: Primary Care Provider . Past History Medical & Surgical History: (1) Overdose (2) Drug abuse (3) Tobacco abuse . "Provider Documentation" section prepared by Lakshmi Joseph. . VTE Core Measure Inpt VTE Proph given/why not?: Enoxaparin (Lovenox)SQ
[2016-08-12 11:44] VITALS: BP 129/56; PULSE 87; TEMP 36.8; O2SAT 96
[2016-08-12] MEDS ORDERED: AMOXICILLIN/CLAVULANATE TAB 875 MG TAB PO ONE (12:00)
--- NOTE | 2016-08-12 14:42 | Discharge Summary ---
Discharge Summary Date of Service August 12, 2016. Discharge Summary Admission Date: August 10, 2016 at 12:53 Discharge Date: August 12, 2016 Discharge Disposition: Home Principal Diagnosis: Heroin Overdose,Aspiration pneumonia Secondary Diagnoses/Problems: Please see H&P and Hospital Progress note Consultations: Psychiatry Medication Reconciliation New Medications: Lactobacillus Acidophilus (Lactinex) Tab 2 TAB PO BID, #30 TAB Amoxicillin & Pot Clavulanate (Amoxicillin/Clavulanate P) 1 Tab Tab 875 MG PO BIDM for 7 Days, #14 TAB Admission Information HPI (per Admitting provider): This is a 20 year old male with multiple drug abuse, chronic smoker, who presents to the ED after being found unresponsive. Patient's significant other at bedside states patient was released from penitentiary 2 days ago and began using heroin again yesterday. Pt reports snorting heroin last night and "a small amount" this morning as well as taking half a Percocet. Denies alcohol intake. This morning patient was found to be unresponsive with epistaxis and foaming at the mouth in his home by a friend this morning who called 911. Per report when EMS arrived patient was unresponsive with pulse with slow respiratory rate and hypoxia. Patient awoke with Narcan 0.4 mg by EMS. He reportedly vomited and there was concern for aspiration. When patient arrived to ER he was hypoxic to 50s on RA and 70s on nonrebreather. He was noted to have increased work of breathing. He was placed on BiPAP with improvement of sats to 100s. Pt received Ativan 0.5 mg in ER. Pt reports feeling tired with dry mouth but otherwise comfortable now on BiPAP. He denies feeling SOB currently. No recent illness, fever, chills, URI symptoms, cough, chest pain, abdominal pain, N/V prior to today, change in bowel movements, calf pain, edema, suicidal ideations. Pt was hyperglycemic in 300s in ER and received 2 units of IV insulin. No personal history of DM or other medical problems. He does admit to polyuria and polydipsia. Pt reports prior IVDA in remote past. No needle sharing. Patient has not been tested for HIV in the past and wishes to have testing done. Past Medical/Surgical History Medical Problems: (1) Drug abuse Status: Chronic (2) Tobacco abuse Status: Chronic Surgical Problems: (1) No significant past surgical history Status: Chronic Family History Diabetes mellitus FATHER MOTHER Social History Smoking Status: Current Every Day Smoker (1/2 ppd) Alcohol Use: none Drug Use: heroin (snorting recently. remote IVDA), other (meth prior to recent incarceration) Marital Status: in relationship Housing status: lives with significant other Multi-Drug Resistant Organisms History of MDRO: No Allergies Coded Allergies: No Known Allergies (Unverified , NONE, 08/10/16) Home Medications No Active Prescriptions or Reported Meds Review of Systems Ten systems reviewed and negative except as noted in HPI. Physical Ex - H&P Physical Exam Vital Signs Date Time Temp Pulse Resp B/P Pulse Ox O2 Delivery O2 Flow Rate FiO2 08/10/16 12:12 99 08/10/16 11:45 109 18 120/67 99 BiPAP 08/10/16 10:35 135 22 111/72 96 Room Air 08/10/16 10:30 130 93 100 08/10/16 10:12 141 08/10/16 10:10 36.4 146 20 119/91 56 Room Air General Appearance: WD/WN, + pertinent finding (somnolent but awakens and answers questions appropriately, appears calm and comfortable on BiPAP) Head: normocephalic, atraumatic Eyes: normal inspection, PERRL, sclerae normal ENT: hearing grossly normal, + pertinent finding (on BiPAP) Neck: supple, trachea midline Respiratory/Chest: no respiratory distress, no accessory muscle use, + pertinent finding (scattered rhonchi. saturating well on BiPAP) Cardiovascular: no murmur, normal peripheral pulses, + bradycardia (regular rhythm) Abdomen/GI: normal bowel sounds, non tender, soft Extremities/Musculoskelatal: no calf tenderness, normal capillary refill, no pedal edema Neurologic/Psych: alert, normal mood/affect, oriented x 3, + pertinent finding (no focal deficit on gross examination) Skin: normal color, warm/dry Diagnostics - H&P Diagnostics Laboratory Results Results Past 24 Hours Test 08/10/16 10:25 08/10/16 10:36 08/10/16 11:10 08/10/16 13:06 Range/Units White Blood Count 25.03 4.8-10.8 K/uL Red Blood Count 5.29 4.7-6.1 M/uL Hemoglobin 16.1 14.0-18.0 g/dL Hematocrit 48.0 42-52 % Mean Corpuscular Volume 90.7 80-100 fL Mean Corpuscular Hemoglobin 30.4 25-34 pg Mean Corpuscular Hemoglobin Concent 33.5 32-36 g/dl Platelet Count 398 130-400 K/uL Mean Platelet Volume 9.8 7.4-10.4 fL Neutrophils (%) (Auto) 84.1 % Lymphocytes (%) (Auto) 11.2 % Monocytes (%) (Auto) 3.9 % Eosinophils (%) (Auto) 0.2 % Basophils (%) (Auto) 0.2 % Neutrophils # (Auto) 21.05 1.4-6.5 K/uL Lymphocytes # (Auto) 2.81 1.2-3.4 K/uL Monocytes # (Auto) 0.97 0.11-0.59 K/uL Eosinophils # (Auto) 0.06 0-0.5 K/uL Basophils # (Auto) 0.05 0-0.2 K/uL RDW Standard Deviation 46.3 36.4-46.3 fL RDW Coefficient of Variation 14.0 11.5-14.5 % Immature Granulocyte % (Auto) 0.4 % Immature Granulocyte # (Auto) 0.09 0.00-0.02 K/uL Sodium Level 139 136-145 mmol/L Potassium Level 3.7 3.5-5.1 mmol/L Chloride Level 101 98-107 mmol/L Carbon Dioxide Level 26 21-32 mmol/L Anion Gap 12.0 3-11 mmol/L Blood Urea Nitrogen 12 7-18 mg/dl Creatinine 1.30 0.60-1.40 mg/dl Est Creatinine Clear Calc Drug Dose 93.4 ml/min Estimated GFR () 89.8 Estimated GFR (Non- 77.5 BUN/Creatinine Ratio 9.3 10-20 Random Glucose 361 70-99 mg/dl Calcium Level 8.3 8.5-10.1 mg/dl Total Bilirubin 0.3 0.2-1 mg/dl Aspartate Amino Transf (AST/SGOT) 24 15-37 U/L Alanine Aminotransferase (ALT/SGPT) 36 12-78 U/L Alkaline Phosphatase 107 45-117 U/L Total Protein 7.5 6.4-8.2 gm/dl Albumin 4.2 3.4-5.0 gm/dl Globulin 3.3 2.5-4.0 gm/dl Albumin/Globulin Ratio 1.3 0.9-2 Beta-Hydroxybutyric Acid 1.35 0.2-2.81 mg/dL Ethyl Alcohol mg/dL < 3.0 0-3 mg/dl Arterial Blood pH 7.38 7.35-7.45 Arterial Blood Partial Pressure CO2 40 35-46 mmHg Arterial Blood Partial Pressure O2 109 80-95 mm/Hg Arterial Blood HCO3 23 19-24 mmol/L Arterial Blood Oxygen Saturation 98.1 90-95 % Arterial Blood Base Excess -2.0 -9-1.8 mEq/L Arterial Blood Gas Delivery 100% Anish Test POSITIVE POS Test 08/10/16 13:07 Range/Units Microbiology Results 08/10/16 Blood Culture, Received Pending 08/10/16 Blood Culture, Received Pending Diagnostic Radiology CHEST ONE VIEW PORTABLE CLINICAL HISTORY: Shortness of breath. Hypoxia. COMPARISON STUDY: No previous studies for comparison. FINDINGS: There is no pneumothorax or pleural effusion. Extensive left lung airspace opacity is noted. There is moderate airspace opacity within the right upper lung. Cardiac size is normal. Mediastinal contours are normal. There may be mild interlobular septal thickening. IMPRESSION: Extensive bilateral airspace opacities with mild interstitial thickening, greater within the left lung. The findings favor multifocal pneumonia. Asymmetric pulmonary edema or pulmonary hemorrhage could appear similar although are considered less likely. Radiographic follow up is recommended. EKG sinus tachycardia, rate 136, no ischemic findings Impression - H&P Impression Assessment and Plan OPIOID OVERDOSE Presented with unresponsiveness, respiratory depression after snorting heroin and taking half a Percocet Became more alert after Narcan 0.4 mg [employer] Was hypoxic to 50s on RA and 70s on nonrebreather, now saturating well on BiPAP Give Narcan 0.05 mg x 1 and repeat until ventilation improves Wean oxygen as tolerated Narcan 0.4 mg PRN apnea Urine tox screen pending Remote hx IV drug use; pt requests HIV testing Consult social work msw for discharge planning/ rehab arrangement ASPIRATION PNEUMONIA Reportedly vomited prior to arrival with concern for aspiration CXR- multifocal pneumonia Afebrile, + leukocytosis (WBC 25k), + tachycardia, no hypotension, lactic acid WNL Given dose of IV Zosyn in ER Will change antibiotics to IV Unasyn F/u blood cultures Received 1 liter of IVF's in ER - will continue IVFs at 100 mL/hour Repeat CXR in am HYPERGLYCEMIA Likely due to opioid overdose Random glucose 361 in ER Received regular insulin 2 units IV in ER Monitor BSG q4 hours DVT PROPHYLAXIS Lovenox SQ FULL CODE DISPOSITION Admit to telemetry surgical services assistant consulted for arrangement of rehab Patient seen in collaboration with Dr. Willson. Please see his addendum. VTE Prophylaxis VTE Risk Assessment Done? Y/N: Yes Risk Level: Moderate Physical Exam (per Admitting): General Appearance: WD/WN, + pertinent finding (somnolent but awakens and answers questions appropriately, appears calm and comfortable on BiPAP) Head: normocephalic, atraumatic Eyes: normal inspection, PERRL, sclerae normal ENT: hearing grossly normal, + pertinent finding (on BiPAP) Neck: supple, trachea midline Respiratory/Chest: no respiratory distress, no accessory muscle use, + pertinent finding (scattered rhonchi. saturating well on BiPAP) Cardiovascular: no murmur, normal peripheral pulses, + bradycardia (regular rhythm) Abdomen/GI: normal bowel sounds, non tender, soft Extremities/Musculoskelatal: no calf tenderness, normal capillary refill, no pedal edema Neurologic/Psych: alert, normal mood/affect, oriented x 3, + pertinent finding (no focal deficit on gross examination) Skin: normal color, warm/dry Hospital Course Heroin Overdose with H/O Heroin abuse Presented with unresponsiveness, respiratory depression after snorting heroin and taking half a Percocet Was hypoxic to 50s on RA and 70s on nonrebreather Required 2 doses of Narcan and BIPAP Tolerated NC and doing fine this morning Urine tox screen -negative Remote hx IV drug use; pt requests HIV testing Psychiatry consulted-appreciate input Consult social work msw for discharge planning/ rehab arrangement Lists of Outpatient resources given ASPIRATION PNEUMONIA Reportedly vomited prior to arrival with concern for aspiration CXR- multifocal pneumonia Afebrile, + leukocytosis (WBC 25k), + tachycardia, no hypotension, lactic acid WNL Received 1 dose of Zosyn in ER Now on Unasyn CXR-no improvement Will start Augmentin HYPERGLYCEMIA Likely due to opioid overdose Random glucose 361 in ER Received regular insulin 2 units IV in ER Monitor BSG q4 hours Normalized DVT PROPHYLAXIS Lovenox SQ FULL CODE DISPOSITION Awaited Discussed with the Girlfriend and the patient Discharge home today Total time spent on discharge = 35 minutes This includes examination of the patient, discharge planning, medication reconciliation, and communication with other providers. Discharge Instructions Date of Service August 12, 2016. Admission Reason for Admission: Overdose,Hypoxia Discharge Discharge Diagnosis / Problem: Heroin Overdose,Aspiration pneumonia Discharge Goals Goal(s): Prevent Disease Progression Activity Recommendations Activity Limitations: resume your previous activity . Instructions / Follow-Up Instructions / Follow-Up Dr Mckee on 08/16/16 at 10:05 AM. Current Hospital Diet Patient's current hospital diet: Regular Diet Discharge Diet Recommended Diet: Regular Diet Pending Studies Studies pending at discharge: no Medical Emergencies . Who to Call and When: Medical Emergencies: If at any time you feel your situation is an emergency, please call 911 immediately. . Non-Emergent Contact Non-Emergency issues call your: Primary Care Provider . Past History Medical & Surgical History: (1) Overdose (2) Drug abuse (3) Tobacco abuse . "Provider Documentation" section prepared by Lakshmi Joseph. . VTE Core Measure Inpt VTE Proph given/why not?: Enoxaparin (Lovenox)SQ <Electronically signed by Lakshmi Joseph M.D.> Additional Copies To Karthik Mckee M.D.
[2016-08-12] MEDS ORDERED: AMOXICILLIN/CLAVULANATE TAB 875 MG TAB PO SCH (16:45)
== END 2016-08-12 12:01 | disposition home or self-care (01) | DRG 917 ==
LOC: ENRESERVDT → ENRESERVTM → EDBD 10:07 → C.EDB 10:07 → C.2E 12:53
PROVIDERS: ADMIT Family Medicine; ATTEND Internal Medicine
DX: T40.1X1A Poisoning by heroin, accidental (unintentional), initial encounter (principal); J69.0 Pneumonitis due to inhalation of food and vomit; T40.2X1A Poisoning by other opioids, accidental (unintentional), initial encounter; R09.02 Hypoxemia; F11.10 Opioid abuse, uncomplicated; F12.10 Cannabis abuse, uncomplicated; R73.9 Hyperglycemia, unspecified; F17.210 Nicotine dependence, cigarettes, uncomplicated; F17.220 Nicotine dependence, chewing tobacco, uncomplicated; Z51.81 Encounter for therapeutic drug level monitoring; Z83.3 Family history of diabetes mellitus; Z81.8 Family history of other mental and behavioral disorders

== ENCOUNTER 2016-11-09 14:09 | Emergency (ER) | payer BC, OTHER ==
[~2016-11-09] VITALS: Ht 170.2 cm; Wt 92.7 kg
[2016-11-09 14:03] VITALS: TEMP 37; Ht 170.2 cm; Wt 92.7 kg
[~2016-11-09 14:09] MED LIST: AMOX1TAB43 PO; LCTX PO
[2016-11-09] MEDS ORDERED: SODIUM CHLORIDE 0.9% 1000ML 1,000 ML IV STA (14:25)
--- NOTE | 2016-11-09 14:34 | EMERGENCY ROOM VISIT NOTE ---
History Report prepared by Emily: Slim Napoles Under the Supervision of: Dr. Ras Veronica D.O. First contact with patient: 14:11 Chief Complaint: OVERDOSE (INTENTIONAL) History of Present Illness The patient is a 21 year old male who presents to the Emergency Room with an accidental overdose that occurred 45 minutes ago. Per EMS and police, the patient was found in the drive-through of [employer], unresponsive in his car. When he was found, he received 2 mg of Narcan (at 1326) and became conscious soon after. Per EMS, he was in respiratory distress, however he is not currently. He has a history of overdose that occurred in August of this year as well. Per the patient, he snorted 1 bag of heroin around noon today. He denies any chest pain, shortness of breath, nausea, vomiting, or fevers. He is on Clonidine and Seroquel for anxiety and insomnia. He was in rehab for drug use 1 month ago, and has been clean since. Today, he ran into an old friend and was presented with the heroin. Source of History: patient Onset: 45 minutes ago Position: other (global) Symptom Intensity: moderate Quality: other (Overdose) Timing: constant Associated Symptoms: No fevers, No chest pain, No SOB, No nausea, No vomiting Review of Systems See HPI for pertinent positives & negatives. A total of 10 systems reviewed and were otherwise negative. Past Medical & Surgical Medical Problems: (1) Drug abuse (2) Hypoxia (3) Overdose (4) Tobacco abuse Surgical Problems: (1) No significant past surgical history Family History Diabetes mellitus FATHER MOTHER Social History Smoking Status: Current Every Day Smoker Smokeless Tobacco Use: Yes Drug Use: heroin, other Marital Status: in relationship Housing Status: lives alone Current/Historical Medications Scheduled Clonidine HCl (Clonidine HCl), 0.1 MG PO BID Quetiapine Fumarate (Seroquel), 200 MG PO DAILY Allergies Coded Allergies: No Known Allergies (Unverified , NONE, 08/10/16) Physical Exam Vital Signs Date Time Temp Pulse Resp B/P (MAP) Pulse Ox O2 Delivery O2 Flow Rate FiO2 11/09/16 15:32 78 18 131/72 98 Room Air 11/09/16 14:54 98 Room Air 11/09/16 14:24 94 11/09/16 14:03 37.0 82 16 174/97 98 Room Air Physical Exam GENERAL: Patient is awake, alert, and in no acute distress. Patient is resting comfortably and showing no signs of anxiety EYES: The conjunctivae are clear. The pupils are constricted but reactive to light bilaterally EARS, NOSE, MOUTH AND THROAT: The nose is without any evidence of any deformity. Mucous membranes are moist tongue is midline NECK: The neck is nontender and supple. RESPIRATORY: Normal respiratory effort is noted there is no evidence of wheezing rhonchi or rales CARDIOVASCULAR: Tachycardic rate and regular rhythm noted there no murmurs rubs or gallops normal S1 normal S2. GASTROINTESTINAL: The abdomen is soft. Bowel sounds are present in all quadrants. Abdomen is nontender MUSCULOSKELETAL/EXTREMITIES: There is no evidence of gross deformity full range of motion is noted in the hips and shoulders SKIN: There is no obvious evidence of any rash. There are no petechiae, pallor or cyanosis noted. NEUROLOGIC: Patient is awake alert and oriented x3 strength is symmetric patellar reflexes are 2+ bilaterally Medical Decision & Procedures ER Provider Diagnostic Interpretation: Radiology results as stated below per my review and radiologist interpretation: SINGLE VIEW CHEST CLINICAL HISTORY: Overdose. FINDINGS: An AP, portable, upright chest radiograph is compared to study dated 08/11/2016. The cardiomediastinal silhouette is unremarkable. The lungs and pleural spaces are clear. No pneumothorax is seen. The bony thorax is grossly intact. IMPRESSION: No active disease in the chest. Electronically signed by: Helder Cruz M.D. 11/09/2016 2:58 PM Dictated Date/Time: 11/09/2016 2:58 PM Laboratory Results 11/09/16 14:59 Red Blood Count 4.69, Mean Corpuscular Volume 88.1, Mean Corpuscular Hemoglobin 30.1, Mean Corpuscular Hemoglobin Concent 34.1, Mean Platelet Volume 9.5, Neutrophils (%) (Auto) 69.6, Lymphocytes (%) (Auto) 23.7, Monocytes (%) (Auto) 5.8, Eosinophils (%) (Auto) 0.5, Basophils (%) (Auto) 0.2, Neutrophils # (Auto) 8.36, Lymphocytes # (Auto) 2.85, Monocytes # (Auto) 0.70, Eosinophils # (Auto) 0.06, Basophils # (Auto) 0.02 11/09/16 14:59 Test 11/09/16 14:17 11/09/16 14:59 White Blood Count 12.01 K/uL (4.8-10.8) Red Blood Count 4.69 M/uL (4.7-6.1) Hemoglobin 14.1 g/dL (14.0-18.0) Hematocrit 41.3 % (42-52) Mean Corpuscular Volume 88.1 fL (80-100) Mean Corpuscular Hemoglobin 30.1 pg (25-34) Mean Corpuscular Hemoglobin Concent 34.1 g/dl (32-36) Platelet Count 332 K/uL (130-400) Mean Platelet Volume 9.5 fL (7.4-10.4) Neutrophils (%) (Auto) 69.6 % Lymphocytes (%) (Auto) 23.7 % Monocytes (%) (Auto) 5.8 % Eosinophils (%) (Auto) 0.5 % Basophils (%) (Auto) 0.2 % Neutrophils # (Auto) 8.36 K/uL (1.4-6.5) Lymphocytes # (Auto) 2.85 K/uL (1.2-3.4) Monocytes # (Auto) 0.70 K/uL (0.11-0.59) Eosinophils # (Auto) 0.06 K/uL (0-0.5) Basophils # (Auto) 0.02 K/uL (0-0.2) RDW Standard Deviation 41.4 fL (36.4-46.3) RDW Coefficient of Variation 12.9 % (11.5-14.5) Immature Granulocyte % (Auto) 0.2 % Immature Granulocyte # (Auto) 0.02 K/uL (0.00-0.02) Prothrombin Time 10.2 SECONDS (9.0-12.0) Prothromb Time International Ratio 1.0 (0.9-1.1) Activated Partial Thromboplast Time 25.9 SECONDS (21.0-31.0) Partial Thromboplastin Ratio 1.0 Anion Gap 7.0 mmol/L (3-11) Est Creatinine Clear Calc Drug Dose 141.7 ml/min Estimated GFR () 140.3 Estimated GFR (Non- 121.1 BUN/Creatinine Ratio 12.4 (10-20) Calcium Level 9.0 mg/dl (8.5-10.1) Total Bilirubin 0.3 mg/dl (0.2-1) Direct Bilirubin < 0.1 mg/dl (0-0.2) Aspartate Amino Transf (AST/SGOT) 13 U/L (15-37) Alanine Aminotransferase (ALT/SGPT) 25 U/L (12-78) Alkaline Phosphatase 104 U/L (45-117) Total Creatine Kinase 212 U/L (39-308) Total Protein 7.6 gm/dl (6.4-8.2) Albumin 4.4 gm/dl (3.4-5.0) Lipase 68 U/L (73-393) Salicylates Level 2.6 mg/dl (2.8-20) Acetaminophen Level < 2 ug/ml (10-30) Ethyl Alcohol mg/dL < 3.0 mg/dl (0-3) Laboratory results per my review. Medications Administered Medications (Trade) Dose Ordered Sig/Mamie Route Start Time Stop Time Status Last Admin Dose Admin Sodium Chloride 1,000 ml @ 999 mls/hr Q1H1M STAT IV 11/09/16 14:25 11/09/16 15:25 DC 11/09/16 14:25 999 MLS/HR ECG Indication: toxicologic Rate (beats per minute): 91 Rhythm: normal sinus Findings: no ectopy, other (No acute) ED Course 1411: The patient was evaluated in room B8. A complete history and physical examination were performed. 1425: Ordered NSS 1,000 ml @ 999 mls/hr IV 1602: Upon reevaluation, the patient is resting. I discussed the results and treatment plan with him. He verbalized agreement of the treatment plan. He was discharged home. Medical Decision Differential diagnosis: Etiologies such as toxicologic, infection, hypoglycemia, electrolyte abnormalities, cardiac sources, intracerebral event, neurologic, drug overdose, as well as others were entertained. Nursing notes reviewed. The patient is a 21-year-old male who presented to the emergency department for an evaluation after a drug overdose. The patient admits to snorting heroin earlier. He was found with respiratory distress and given Narcan by the police. The patient arrived at the emergency Department awake alert. The patient did not have signs of pulmonary edema. He was observed in the emergency department for a period of time. I discussed the patient's laboratory and radiographic studies with him. He did not require oxygen while he was in the emergency apartment. His oxygen saturation maintained a good saturation. The patient was discharged with the police as he was in violation of July. They were encouraged to bring him back to the emergency apartment immediately if he started having any signs of decreased mentation or respiratory distress. Medication Reconcilliation Current Medication List: was personally reviewed by me Blood Pressure Screening Patient's blood pressure: Normal blood pressure Blood pressure disposition: Did not require urgent referral Impression Primary Impression: Drug overdose Scribe Attestation The scribe's documentation has been prepared under my direction and personally reviewed by me in its entirety. I confirm that the note above accurately reflects all work, treatment, procedures, and medical decision making performed by me. Departure Information Dispostion Home / Self-Care Referrals No Doctor, Assigned (PCP) Forms HOME CARE DOCUMENTATION FORM, IMPORTANT VISIT INFORMATION, WORK / SCHOOL INSTRUCTIONS Patient Instructions ED Overdose Accidental, My [facility] Health Problem Qualifiers Primary Impression: Drug overdose Encounter type: initial encounter Injury intent: accidental or unintentional Qualified Codes: T50.901A - Poisoning by unspecified drugs, medicaments and biological substances, accidental (unintentional), initial encounter
[2016-11-09] MEDS ORDERED: CTP1X PO (14:40)
[2016-11-09] MEDS ORDERED: QUET1TAB10 PO (14:40)
[2016-11-09 14:54] VITALS: O2SAT 98
--- NOTE | 2016-11-09 14:59 | DIAGNOSTIC IMAGING REPORT ---
SINGLE VIEW CHEST CLINICAL HISTORY: Overdose. FINDINGS: An AP, portable, upright chest radiograph is compared to study dated 08/11/2016. The cardiomediastinal silhouette is unremarkable. The lungs and pleural spaces are clear. No pneumothorax is seen. The bony thorax is grossly intact. IMPRESSION: No active disease in the chest. Electronically signed by: Helder Cruz M.D. 11/09/2016 2:58 PM Dictated Date/Time: 11/09/2016 2:58 PM
[2016-11-09 15:19] LABS: BASO % 0.2 %; BASO ABS # 0.02 K/uL (0-0.2); COMPLETE YES; EOS % 0.5 %; HEMATOCRIT 41.3 % (42-52); IG% 0.2 %; LYMPH % 23.7 %; LYMPH ABS # 2.85 K/uL (1.2-3.4); MEAN CELL VOLUME 88.1 fL (80-100); MEAN CORPUSCULAR HEMOGLOBIN 30.1 pg (25-34); MEAN CORPUSCULAR HGB CONC 34.1 g/dl (32-36); MEAN PLATELET VOLUME 9.5 fL (7.4-10.4); MONO % 5.8 %; NEUT % 69.6 %; PLATELET COUNT 332 K/uL (130-400); RED BLOOD COUNT 4.69 M/uL (4.7-6.1); WHITE BLOOD COUNT 12.01 K/uL (4.8-10.8)
[2016-11-09 15:28] LABS: PROTHROMBIN TIME (PATIENT) 10.2 SECONDS (9.0-12.0)
[2016-11-09 15:32] VITALS: BP 131/72; PULSE 78; O2SAT 98
[2016-11-09 15:37] LABS: ALT/SGPT 25 U/L (12-78); BLOOD UREA NITROGEN 11 mg/dl (7-18); BUN/CREATININE RATIO 12.4 (10-20); CARBON DIOXIDE 27 mmol/L (21-32); CHLORIDE 105 mmol/L (98-107); CREATININE 0.88 mg/dl (0.60-1.40); GLUCOSE 112 mg/dl (70-99); POTASSIUM 3.8 mmol/L (3.5-5.1); SODIUM 139 mmol/L (136-145)
[2016-11-09 15:38] LABS: ACETAMINOPHEN < 2 ug/ml (10-30)
[2016-11-09 15:41] LABS: ALKALINE PHOSPHATASE 104 U/L (45-117); AST/SGOT 13 U/L (15-37)
== END 2016-11-09 16:18 | disposition home or self-care (01) ==
LOC: EDBD 14:09 → C.EDB 14:10
DX: T65.91XA Toxic effect of unspecified substance, accidental (unintentional), initial encounter (principal); F41.9 Anxiety disorder, unspecified; F17.200 Nicotine dependence, unspecified, uncomplicated; Z79.899 Other long term (current) drug therapy; Z83.3 Family history of diabetes mellitus